=== PATIENT | female | born 1960 | race Caucasian/White ===

== ENCOUNTER 2016-08-21 09:49 | Inpatient (IN) | payer BC, OTHER ==
[~2016-08-21] VITALS: Ht 160 cm; Wt 65.3 kg
[~2016-08-21 09:49] MED LIST: CITA10TA4 PO; LISI-360 PO; XANA0.5T PO
[2016-08-29] MEDS ORDERED: LEVO.1 PO (11:28)
[2016-08-29] MEDS ORDERED: CITA10TA4 PO (11:28)
[2016-08-29] MEDS ORDERED: PRIL20CA9 PO (11:28)
[2016-08-29] MEDS ORDERED: GAS-80CH CHEW (11:28)
[2016-08-29] MEDS ORDERED: LISI-515 PO (11:28)
[2016-08-29] MEDS ORDERED: ALPR0.25 PO (11:28)
--- NOTE | 2016-08-30 07:06 | PD.HP.UP ---
H&P Update Note The Pre-Admit History and Physical Examination regarding the above named patient was reviewed (including, but not limited to, vital signs, heart, lungs, co-morbid conditions), and upon re-examination it is noted that: the patient's condition has not significantly changed since the last examination. Fernanda Padilla MD Aug 30, 2016 07:06
[2016-08-30 07:24] VITALS: BP 123/78; PULSE 101; RESP 16; TEMP 97.9; O2SAT 100
[2016-08-30] MEDS ORDERED: LACTATED RINGER'S 1000 ML INJ 1,000 ML ONE (07:32)
[2016-08-30] MEDS ORDERED: ceFAZolin 2 GM PREMIX 50 ML ONE (08:06)
[2016-08-30] MEDS ORDERED: metroNIDAZOLE 500 MG INJ 100 ML IV ONE (08:06)
[2016-08-30] MEDS ORDERED: FAMOTIDINE 20 MG/2 ML VIAL ONE (08:21)
[2016-08-30] MEDS ORDERED: ACETAMINOPHEN 1000 MG/100 ML VIAL IV ONE (08:21)
[2016-08-30] MEDS ORDERED: APREPITANT 40 MG CAP ONE (08:21)
[2016-08-30] MEDS ORDERED: HYDROmorphone HCL PF 2 MG/ML VIAL ONE (08:33)
[2016-08-30] MEDS ORDERED: MIDAZOLAM HCL 2 MG/2 ML VIAL ONE (09:04)
[2016-08-30] MEDS ORDERED: DEXAMETHASONE SOD PHOS 4 MG/ML VIAL ONE (09:04)
--- NOTE | 2016-08-30 10:09 | PD.OP ---
Operative Report Date of Surgery: Aug 30, 2016 Preoperative Diagnosis: Colonic stricture Postoperative Diagnosis: Same Procedure: Cysto with bilateral u-caths Anesthesia: DARIN Surgeon: Ryder Ritter Computer Tape Librarian(s): none Resident Surgeon: none Operation and Findings: 55-year-old female with history of colonic stricture. Patient is scheduled undergo robotic procedure by Dr. Padilla and request for made for bilateral ureteral catheter placement. The patient was brought to the operating room and identified myself as Rosa Sage. She's placed in dorsal lithotomy position, prepped and draped in usual sterile fashion, received preprocedure antibiotics, and general endotracheal tube anesthesia was administered. 22 Kazakh cystoscope was inserted into bladder. Prince cystoscopy did not show any abnormalities. The left ureteral orifice was identified and a 5 Kazakh open- ended catheter was inserted into the left ureter without difficulty. This was repeated on the right side without difficulty. A Ornelas catheter was inserted and the catheters were attached the Ornelas catheter. She tolerated the procedure well. Ryder Ritter DO Aug 30, 2016 10:09
[2016-08-30] MEDS ORDERED: PROPOFOL 200 MG/20 ML AMP IV ONE (12:22)
[2016-08-30] MEDS ORDERED: PHENYLEPH/NS 1000 MCG/10 ML SYR IV ONE (12:22)
[2016-08-30] MEDS ORDERED: ePHEDrine/NS 25 MG/5 ML SYR IV ONE (12:22)
[2016-08-30] MEDS ORDERED: KETOROLAC TROMETHAMINE 60 MG/2 ML (IM) VIAL IM ONE (12:22)
[2016-08-30] MEDS ORDERED: ONDANSETRON HCL 4 MG/2 ML VIAL IV PUSH ONE (12:22)
[2016-08-30] MEDS ORDERED: NEOSTIGMINE 3 MG/3 ML SYR IV ONE (12:22)
[2016-08-30] MEDS ORDERED: LACTATED RINGER'S 1000 ML INJ 3,000 ML IV ONE (12:22)
[2016-08-30] MEDS ORDERED: ceFAZolin INJ 1,000 MG VIAL IV ONE (14:07)
[2016-08-30] MEDS ORDERED: DO NOT ADM ANY ANTICOAGULANT DRUGS XX PRN (17:31)
[2016-08-30] MEDS ORDERED: *morphine SULFATE 8 MG/ML PERIprocedure ONLY ONE ×3 (17:32→17:50)
[2016-08-30] MEDS ORDERED: fentaNYL CITRATE 250 MCG/5 ML AMP ONE (17:32)
[2016-08-30] MEDS ORDERED: metroNIDAZOLE 500 MG INJ 100 ML IV SCH ×2 (18:00→19:00)
[2016-08-30] MEDS: D5-NS + KCL 20 MEQ INJ 1,000 ML IV SCH (18:12)
[2016-08-30] MEDS ORDERED: ACETAMINOPHEN 325 MG TAB PO PRN (18:15)
[2016-08-30] MEDS ORDERED: diphenhydrAMINE HCL 50 MG/ML VIAL IV PRN (18:15)
[2016-08-30] MEDS ORDERED: ENALAPRILAT 1.25 MG/ML VIAL IV PRN (18:15)
[2016-08-30] MEDS ORDERED: KETOROLAC TROMETHAMINE 30 MG/ML (IVP) VIAL IVP PRN (18:15)
[2016-08-30] MEDS ORDERED: POTASSIUM CHLOR 20 MEQ PREMIX 100 ML IV PRN (18:15)
[2016-08-30] MEDS ORDERED: BENZOCAINE 6 MG/MENTHOL 10 MG LOZENGE SUCK-ON PRN (18:15)
[2016-08-30] MEDS ORDERED: Post-op Orders (for Pharmacy) MISC XX ONE (18:15)
[2016-08-30] MEDS ORDERED: NALOXONE HCL 0.4 MG/ML AMP IV PRN (18:15)
[2016-08-30] MEDS ORDERED: ACETAMINOPHEN/HYDROcodone 325 MG/5 MG TAB PO PRN ×2 (18:15)
[2016-08-30] MEDS ORDERED: ENALAPRILAT 2.5 MG/2 ML VIAL IV PRN (18:15)
[2016-08-30] MEDS ORDERED: POTASSIUM CHLOR 40 MEQ PREMIX 100 ML IV PRN (18:15)
[2016-08-30] MEDS ORDERED: *HYDROmorphone PF 1 MG VIAL PERIprocedural Use ONLY ONE (18:16)
[2016-08-30 18:33] LABS: AUTOMATED NEUTROPHIL # 11.7 TH/MM3 (1.8-7.7); BASOPHIL # 0.1 TH/MM3 (0-0.2); BASOPHIL % 0.7 % (0.0-2.0); HEMATOCRIT 34.5 % (35.0-46.0); HEMO FLAGS DIFF FINAL; LYMPH % 6.1 % (9.0-44.0); LYMPHOCYTE # 0.8 TH/MM3 (1.0-4.8); MEAN CELL VOLUME 86.9 FL (80.0-100.0); MEAN CORPUSCULAR HEMOGLOBIN 28.5 PG (27.0-34.0); MEAN CORPUSCULAR HGB CONC 32.8 % (32.0-36.0); MONO % 5.1 % (0.0-8.0); NEUT % 88.1 % (16.0-70.0); PLATELET COUNT 200 TH/MM3 (150-450); RED BLOOD COUNT 3.98 MIL/MM3 (4.00-5.30); RED CELL DISTRIBUTION WIDTH 13.9 % (11.6-17.2); WHITE BLOOD COUNT 13.2 TH/MM3 (4.0-11.0)
[2016-08-30] MEDS ORDERED: HEPARIN SODIUM - SQ 10,000 UNITS/ML VIAL SQ SCH (18:45)
[2016-08-30] MEDS: MORPHINE SULFATE 30 MG/30 ML PCA IV SCH (19:02)
[2016-08-30 19:11] LABS: BICARBONATE 22.3 MEQ/L (21.0-32.0); POTASSIUM 3.2 MEQ/L (3.5-5.1)
[2016-08-30 20:00] VITALS: BP 81/53; PULSE 80; PULSE 92; RESP 14; TEMP 98.2; O2SAT 100
[2016-08-30 20:07] LABS: CALCIUM-PROTEIN CORRECTED 8.3 MG/DL (8.5-10.1)
[2016-08-30 21:00] VITALS: PULSE 76
[2016-08-30] MEDS: LISINOPRIL 10 MG TAB PO SCH (21:00)
[2016-08-30 22:00] VITALS: PULSE 82
[2016-08-30] MEDS: PCA - TOTAL MG MORPHINE DELIVERED PER SHIFT SCH (22:00)
[2016-08-30] MEDS: SODIUM CHLORIDE 0.9% FLUSH 5 ML FLUSH IVF SCH (22:46)
[2016-08-30 23:00] VITALS: PULSE 80
[2016-08-31] VITALS (25 sets, daily range): BP systolic 88–123; BP diastolic 54–82; PULSE 60–111; RESP 14–18; TEMP 98.1–99.7; O2SAT 94–100
[2016-08-31] MEDS: PCA - TOTAL MG MORPHINE DELIVERED PER SHIFT SCH ×3 (06:00→21:58)
[2016-08-31 06:40] LABS: AUTOMATED NEUTROPHIL # 7.3 TH/MM3 (1.8-7.7); BASOPHIL % 0.3 % (0.0-2.0); EOSINOPHIL % 0.1 % (0.0-4.0); HEMATOCRIT 31.4 % (35.0-46.0); HEMO FLAGS DIFF FINAL; LYMPH % 12.3 % (9.0-44.0); LYMPHOCYTE # 1.1 TH/MM3 (1.0-4.8); MEAN CELL VOLUME 86.1 FL (80.0-100.0); MEAN CORPUSCULAR HEMOGLOBIN 28.8 PG (27.0-34.0); MEAN CORPUSCULAR HGB CONC 33.4 % (32.0-36.0); MONO % 7.8 % (0.0-8.0); NEUT % 79.5 % (16.0-70.0); PLATELET COUNT 191 TH/MM3 (150-450); RED BLOOD COUNT 3.64 MIL/MM3 (4.00-5.30); RED CELL DISTRIBUTION WIDTH 13.9 % (11.6-17.2); WHITE BLOOD COUNT 9.2 TH/MM3 (4.0-11.0)
[2016-08-31 06:54] LABS: BICARBONATE 25.5 MEQ/L (21.0-32.0); POTASSIUM 3.5 MEQ/L (3.5-5.1)
[2016-08-31 07:11] LABS: CALCIUM-PROTEIN CORRECTED 8.6 MG/DL (8.5-10.1)
[2016-08-31] MEDS: D5-NS + KCL 20 MEQ INJ 1,000 ML IV SCH ×4 (07:32→20:10)
[2016-08-31] MEDS: LEVOTHYROXINE SODIUM 100 MCG TAB PO SCH (08:32)
[2016-08-31] MEDS: CITALOPRAM HYDROBROMIDE 20 MG TAB PO SCH (08:33)
[2016-08-31] MEDS: PANTOPRAZOLE SODIUM 40 MG VIAL IVP SCH (08:33)
[2016-08-31] MEDS: SODIUM CHLORIDE 0.9% FLUSH 5 ML FLUSH IVF SCH ×2 (08:33→20:06)
[2016-08-31] MEDS ORDERED: SODIUM CHLOR 0.9% 1000 ML INJ 1,000 ML IV ONE (08:45)
[2016-08-31] MEDS: HEPARIN SODIUM - SQ 10,000 UNITS/ML VIAL SQ SCH (16:00)
[2016-08-31] MEDS: ALPRAZolam 0.25 MG TAB PO PRN (20:06)
[2016-08-31] MEDS: LISINOPRIL 10 MG TAB PO SCH (20:07)
[2016-09-01] VITALS (20 sets, daily range): BP systolic 120–156; BP diastolic 71–85; PULSE 89–113; RESP 18–19; TEMP 98.8–100.2; O2SAT 92–96
[2016-09-01] MEDS: D5-NS + KCL 20 MEQ INJ 1,000 ML IV SCH ×5 (00:51→20:04)
[2016-09-01] MEDS: HEPARIN SODIUM - SQ 10,000 UNITS/ML VIAL SQ SCH ×2 (03:33→16:31)
[2016-09-01 05:26] LABS: BASOPHIL % 0.4 % (0.0-2.0); EOSINOPHIL % 0.5 % (0.0-4.0); HEMATOCRIT 29.9 % (35.0-46.0); HEMO FLAGS DIFF FINAL; LYMPH % 13.4 % (9.0-44.0); LYMPHOCYTE # 1.2 TH/MM3 (1.0-4.8); MEAN CELL VOLUME 86.5 FL (80.0-100.0); MEAN CORPUSCULAR HEMOGLOBIN 29.3 PG (27.0-34.0); MEAN CORPUSCULAR HGB CONC 33.9 % (32.0-36.0); MONO % 8.6 % (0.0-8.0); NEUT % 77.1 % (16.0-70.0); PLATELET COUNT 176 TH/MM3 (150-450); RED BLOOD COUNT 3.45 MIL/MM3 (4.00-5.30); WHITE BLOOD COUNT 9.1 TH/MM3 (4.0-11.0)
[2016-09-01] MEDS: PCA - TOTAL MG MORPHINE DELIVERED PER SHIFT SCH ×3 (06:00→20:03)
[2016-09-01 06:14] LABS: BICARBONATE 25.8 MEQ/L (21.0-32.0); POTASSIUM 3.7 MEQ/L (3.5-5.1)
[2016-09-01 06:44] LABS: CALCIUM-PROTEIN CORRECTED 8.5 MG/DL (8.5-10.1)
[2016-09-01] MEDS: LEVOTHYROXINE SODIUM 100 MCG TAB PO SCH (09:04)
[2016-09-01] MEDS: PANTOPRAZOLE SODIUM 40 MG VIAL IVP SCH (09:04)
[2016-09-01] MEDS: CITALOPRAM HYDROBROMIDE 20 MG TAB PO SCH (09:04)
[2016-09-01] MEDS: SODIUM CHLORIDE 0.9% FLUSH 5 ML FLUSH IVF SCH ×2 (09:05→20:02)
--- NOTE | 2016-09-01 10:47 | MP ---
cc: SIENNA PADILLA M.D., ANGELLA M. MD DATE OF SURGERY: 08/30/2016 PREOPERATIVE DIAGNOSIS: Splenic flexure colon stricture POSTOPERATIVE DIAGNOSIS 1. Extensive adhesions. 2. Proximal transverse colon stricture. PROCEDURE: 1. Laparascopic/robotic extensive lysis of adhesions 2. Extended left colectomy. 3. Colonoscopy SURGEON: Dr. Braulio Padilla. TECHNICAL SOLUTIONS ENGINEER: Alejandro. ANESTHESIA: General per ET tube. ESTIMATED BLOOD LOSS: 150 cc. OPERATIVE INDICATIONS The patient is a 55-year-old female with a history of possible Crohn disease and evidence of a stricture apparently at the splenic flexure which was symptomatic. OPERATIVE FINDINGS The patient had dense adhesions throughout the peritoneal cavity to the anterior abdominal wall from the small bowel and interloop adhesions between the small bowel as well. These were slowly and painstakingly dissected free and I had a lot of difficulty telling where the stricture was. Eventually we were able to clear enough of the bowel that we could see the left upper quadrant and did not see evidence of any sort of a stricture. With this I proceeded with colonoscopy which revealed the stricture. Again it was quite difficult to ascertain exactly where the stricture was due to the large amount of fat wrapping that she had throughout the colon, even the healthy colon. Eventually I was able to localize it to the proximal ascending colon. The stricture was fairly tight but there was not a lot of inflammatory changes externally on the bowel with the exception of the fat wrapping which was slightly worse in this particular area of the bowel. OPERATIVE COURSE The patient was brought to the operating room, and placed in the supine position. After induction of general anesthesia, the patient was placed in Amari stirrups and all bony prominences were carefully padded. The skin of the anterior abdominal wall, as well as the perineal area, was then prepped and draped in the usual sterile fashion. Dr. Ritter then came in and performed cystoscopy with placement of bilateral ureteral catheters, please see his operative note for details. A site was then chosen for the camera. After discussion, I elected to place that just about 2 cm to the right and just barely above the umbilicus on the right. An attempt was made to place a 10/12 trocar at this site under direct vision, but unfortunately due to the adhesions, I was not able to enter the peritoneal cavity freely. Therefore, a #5 trocar was then placed just under the right costal margin. This was placed without difficulty, and CO2 insufflation was then undertaken. A brief abdominal survey was performed and the patient was noted have massive adhesions throughout the entirety of the peritoneal cavity. At this point it was impossible to be sure where the area of the stricture was. After a lot of discussion, eventually I decided to do a double docking technique with docking over the right hip to take down the massive amounts of adhesions and then redocking over the left shoulder to take down the part of the colon that was of concern. The adhesions to the anterior abdominal wall were dissected free using the laparascope to the point where we could place the following trocars. A 10/12 trocar was placed in the suprapubic area for the #1 port. An 8 Davinci trocar was placed just to the left of the midline under the costal margin, and the previously placed #5 port was traded out for a #8 Da Jaleel port. The adhesions had been cleared around the site of the suprapubic trocar, and the robot was docked over the left hip. The adhesions were slowly and tediously dissected free from multiple areas of omentum and bowel to the anterior abdominal wal,l as well as the interloop adhesions. Eventually we were able to clear enough of the right lower quadrant/right side of the abdomen that I felt appropriate to proceed with the upper left abdominal area. The robot was undocked. The laparoscope was placed again into the peritoneal cavity and the omentum was brought up and over the transverse colon and the robot was redocked over the left shoulder. The adhesions to the left side of the abdomen were then slowly and painstakingly dissected free. The splenic flexure was noted to be extremely tightly adherent to the edge of the spleen. The lateral peritoneal attachments of the descending colon were dissected free and dissection was continued slowly and carefully up and around the splenic flexure, eventually freeing the splenic flexure. The omentum was then pulled away from the transverse colon and eventually we were able to dissect into the lesser sac, although this was difficult due to the fat wrapping that the patient had. Eventually we had mobilized the colon from the proximal transverse all the way down to the distal sigmoid colon. At this point the bowel was reevaluated and it was still not clear where the area of the stricture was. The lateral peritoneal fascia was dissected free to the point where I felt that we could then make a small incision at the periumbilical area and see if I could palpate where the fistula was. The robot was undocked and a 10 to 12 cm vertical midline incision was made, beginning just above the umbilicus and proceeding to midway between the umbilicus and the symphysis pubis. Using electrocautery, dissection was carried down to the fascia of the anterior abdominal wall which was split the length of the skin incision. A wound protector was then placed. The bowel was then gently prolapsed up and out of the incision and even with palpation I was not able to definitely ascertain where the area of stricture was. The colonoscope was then called for and, after a fairly significant wait, eventually was found and brought into the room. This was advanced through the anus and advanced to the area of the stricture, which was marked to be about the mid transverse colon. Again even with the colonoscope in place, it was difficult to transilluminate the bowel because of the fat wrapping. The colonoscope was then withdrawn, desufflating the colon to the extent possible. A site was then chosen for distal division of the bowel, on the descending colon just past the area of the splenic flexure where it had been so adherent to the spleen. A window was made in the mesentery at this level and the AYIDN stapler 55 blue load was placed across the bowel at this level. A site was then chosen for proximal division, on the bowel along the mid transverse colon. The mesentery was again opened and a reload of the AYDIN stapler was placed across the bowel at this level. The intervening mesentery was divided and ligated using 0 Vicryl ties. The bowel was taken to a back table where it was opened and the stricture was not identified. With this I felt almost certainly that it was a little further along the transverse colon, within that same area of fat wrapping. Dissection continued an additional 4 to 5 cm proximal on the bowel, and a window was made in the mesentery. A reload of the AYDIN stapler was placed across the bowel at this level, and the bowel was then amputated. The mesentery was divided and ligated using 0 Vicryl ties. The specimen was taken to a back table and the stricture was clearly identified within the specimen lumen. A little bit of additional dissection was needed down in the left lower quadrant to free the bowel up enough to lay nicely without tension against the proximal transverse colon. The antimesenteric corners of the staple line were then removed. One limb of gastrointestinal stapler was placed down each limb of the bowel. This was closed along the antimesenteric border, fired, and removed, thus creating and enteroenterotomy. The resulting enterotomy was closed transversely using the TX 60 stapling device. A simple stay suture was placed at the distal anastomosis using 3-0 Vicryl, and the omentum was brought over across the anastomosis and sutured across to decrease any possible tension on the anastomosis. The bowel was examined. There were two small areas of serosal injury that needed to be repaired in a [id number] fashion, using 3-0 Vicryl. The peritoneal cavity was then copiously irrigated with warm normal saline and visually checked with no sign of significant bleeding. The 10/12 trocar sites were then closed in interrupted fashion using #1 PDS and the vertical incision was then closed in a running fashion using looped #1 PDS. The wounds were copiously irrigated with warm normal saline and the midline incision was closed in a running subcuticular fashion using 3-0 Vicryl. The trocar sites were closed in an interrupted subcuticular fashion. The others were closed in an interrupted subcuticular fashion using 3-0 Vicryl. Steri-Strips and sterile dressings were then applied. All sponge, needle and sponge counts were correct. The right ureteral stent was removed and the patient was returned to the post anesthesia care unit in a stable condition. MD BECCA Dan/JESSICA /5:20 PM /9:51 AM FREDERIC
[2016-09-01] MEDS: MORPHINE SULFATE 30 MG/30 ML PCA IV SCH (13:05)
[2016-09-01] MEDS: LISINOPRIL 10 MG TAB PO SCH (20:03)
[2016-09-02] VITALS (7 sets, daily range): BP systolic 135–155; BP diastolic 77–91; PULSE 83–100; RESP 18–20; TEMP 97.6–99.5; O2SAT 94–98
[2016-09-02] MEDS: HEPARIN SODIUM - SQ 10,000 UNITS/ML VIAL SQ SCH ×2 (05:23→15:54)
[2016-09-02] MEDS: PCA - TOTAL MG MORPHINE DELIVERED PER SHIFT SCH ×3 (05:23→20:53)
[2016-09-02 06:22] LABS: AUTOMATED NEUTROPHIL # 7.8 TH/MM3 (1.8-7.7); BASOPHIL % 0.4 % (0.0-2.0); EOSINOPHIL # 0.2 TH/MM3 (0-0.4); EOSINOPHIL % 1.6 % (0.0-4.0); HEMO FLAGS DIFF FINAL; LYMPH % 12.4 % (9.0-44.0); LYMPHOCYTE # 1.2 TH/MM3 (1.0-4.8); MEAN CELL VOLUME 85.9 FL (80.0-100.0); MEAN CORPUSCULAR HEMOGLOBIN 29.9 PG (27.0-34.0); MEAN CORPUSCULAR HGB CONC 34.8 % (32.0-36.0); MONO % 6.8 % (0.0-8.0); NEUT % 78.8 % (16.0-70.0); PLATELET COUNT 192 TH/MM3 (150-450); RED BLOOD COUNT 3.49 MIL/MM3 (4.00-5.30); RED CELL DISTRIBUTION WIDTH 13.7 % (11.6-17.2); WHITE BLOOD COUNT 9.9 TH/MM3 (4.0-11.0)
[2016-09-02 06:47] LABS: BICARBONATE 25.5 MEQ/L (21.0-32.0); POTASSIUM 3.7 MEQ/L (3.5-5.1)
[2016-09-02] MEDS: CITALOPRAM HYDROBROMIDE 20 MG TAB PO SCH (07:57)
[2016-09-02] MEDS: SODIUM CHLORIDE 0.9% FLUSH 5 ML FLUSH IVF SCH ×2 (07:57→20:53)
[2016-09-02] MEDS: LEVOTHYROXINE SODIUM 100 MCG TAB PO SCH (07:57)
[2016-09-02] MEDS: PANTOPRAZOLE SODIUM 40 MG VIAL IVP SCH (07:57)
[2016-09-02] MEDS: D5-NS + KCL 20 MEQ INJ 1,000 ML IV SCH ×2 (12:07→20:53)
[2016-09-02] MEDS: ONDANSETRON HCL 4 MG/2 ML VIAL IV PRN ×2 (14:07→20:53)
[2016-09-02] MEDS: SODIUM CHLORIDE 0.9% FLUSH 5 ML FLUSH IVF PRN (14:07)
--- NOTE | 2016-09-02 15:10 | HHI.PR ---
Subjective Remarks POD#3 s/p robotic/open CHARITY, segmental colectomy Reports pain, burping, heartburn Objective Vital Signs Date Time Temp Pulse Resp B/P Pulse Ox O2 Delivery O2 Flow Rate FiO2 09/02/16 14:00 18 09/02/16 12:05 94 09/02/16 12:03 98.8 83 20 155/91 98 09/02/16 08:21 98.6 95 20 155/80 95 09/02/16 08:00 Nasal Cannula 1.00 21 09/02/16 05:23 18 09/02/16 04:09 Nasal Cannula 1.00 09/02/16 04:00 99.5 98 20 153/78 96 09/02/16 00:00 97.6 100 18 136/79 94 09/01/16 21:44 Simple Mask 2.00 09/01/16 20:03 18 09/01/16 20:00 99.8 108 18 143/85 95 I/O 09/01/16 09/01/16 09/01/16 09/02/16 09/02/16 09/02/16 07:00 15:00 23:00 07:00 15:00 23:00 Intake Total 1990 ml 828 ml 1111 ml 1096 ml Output Total 700 ml 200 ml Balance 1290 ml 628 ml 1111 ml 1096 ml Intake Oral 240 ml 240 ml IV Total 1750 ml 588 ml 1111 ml 1096 ml Output Urine Total 700 ml 200 ml # Bowel Movements 0 0 Result Diagram: 09/02/16 0559 09/02/16 0559 Objective Remarks Abdomen soft, mod distension, tender Wounds clean Assessment and Plan Assessment and Plan Hold on PO until ileus resolves Mobilize Fernanda Padilla MD Sep 02, 2016 15:09
[2016-09-02] MEDS: MORPHINE SULFATE 30 MG/30 ML PCA IV SCH (18:14)
[2016-09-02] MEDS: LISINOPRIL 10 MG TAB PO SCH (20:53)
[2016-09-03] VITALS (9 sets, daily range): BP systolic 134–157; BP diastolic 65–91; PULSE 77–108; RESP 16–20; TEMP 96.5–99.7; O2SAT 93–97
[2016-09-03] MEDS: ONDANSETRON HCL 4 MG/2 ML VIAL IV PRN ×3 (03:47→20:38)
[2016-09-03] MEDS: HEPARIN SODIUM - SQ 10,000 UNITS/ML VIAL SQ SCH ×2 (03:47→16:20)
[2016-09-03] MEDS: PCA - TOTAL MG MORPHINE DELIVERED PER SHIFT SCH ×3 (05:22→22:00)
[2016-09-03] MEDS: PANTOPRAZOLE SODIUM 40 MG VIAL IVP SCH (07:26)
[2016-09-03] MEDS: LEVOTHYROXINE SODIUM 100 MCG TAB PO SCH (07:27)
[2016-09-03] MEDS: CITALOPRAM HYDROBROMIDE 20 MG TAB PO SCH (07:27)
[2016-09-03] MEDS: SODIUM CHLORIDE 0.9% FLUSH 5 ML FLUSH IVF SCH ×2 (07:28→21:00)
--- NOTE | 2016-09-03 09:53 | RADRPT ---
EXAM DATE/TIME: 09/03/2016 09:27 [facility] COMPARISON: No previous studies available for comparison. INDICATIONS : Evaluate for ileus. MEDICAL HISTORY : Hyperthyroidism. Gastroesophageal reflux disease. Crohn's disease. Arthritis. Splenic flexure str icture. SURGICAL HISTORY : 2 bowel resections. ENCOUNTER: Subsequent ACUITY: initial PAIN SCORE: 5/10 LOCATION: Abdomen, all quadrants. FINDINGS: Supine view of the abdomen was performed. Gaseous distention of multiple bowel loops. Cholecystectomy clips. No mass seen. The osseous structures are unremarkable. CONCLUSION: Gaseous distention of multiple bowel loops which can be seen with ileus. Storm Lo MD on September 03, 2016 at 9:50 Board Certified Radiologist. This report was verified electronically.
[2016-09-03 10:57] LABS: HEMATOCRIT 30.7 % (35.0-46.0); MEAN CORPUSCULAR HEMOGLOBIN 28.4 PG (27.0-34.0); PLATELET COUNT 228 TH/MM3 (150-450); RED BLOOD COUNT 3.57 MIL/MM3 (4.00-5.30); RED CELL DISTRIBUTION WIDTH 13.4 % (11.6-17.2); REVIEW FLAG FINAL; WHITE BLOOD COUNT 9.4 TH/MM3 (4.0-11.0)
[2016-09-03 11:22] LABS: BICARBONATE 26.2 MEQ/L (21.0-32.0); MAGNESIUM 1.6 MG/DL (1.5-2.5); POTASSIUM 4.1 MEQ/L (3.5-5.1)
[2016-09-03] MEDS: D5-NS + KCL 20 MEQ INJ 1,000 ML IV SCH (13:10)
[2016-09-03] MEDS: SODIUM CHLORIDE 0.9% FLUSH 5 ML FLUSH IVF PRN (14:27)
--- NOTE | 2016-09-03 18:34 | HHI.PR ---
Subjective Remarks POD#4 s/p robotic/open CHARITY, segmental colectomy emesis last pm Gas and stool this am, feels better Objective Vital Signs Date Time Temp Pulse Resp B/P Pulse Ox O2 Delivery O2 Flow Rate FiO2 09/03/16 18:08 93 21 09/03/16 17:00 96.5 82 17 144/65 93 09/03/16 16:00 99.7 98 16 142/85 95 09/03/16 14:00 18 09/03/16 12:00 98.4 97 16 156/91 94 09/03/16 09:14 93 Nasal Cannula 21 09/03/16 08:00 Room Air 09/03/16 08:00 98.0 108 18 147/85 93 09/03/16 05:22 16 09/03/16 04:28 97.9 82 16 142/80 97 09/03/16 00:27 99.0 89 18 134/78 97 09/02/16 23:06 Nasal Cannula 1.00 09/02/16 20:53 14 09/02/16 20:00 99.1 93 20 146/85 96 I/O 09/02/16 09/02/16 09/02/16 09/03/16 09/03/16 09/03/16 07:00 15:00 23:00 07:00 15:00 23:00 Intake Total 1111 ml 1456 ml 240 ml 280 ml 1781 ml Output Total 300 ml 590 ml 200 ml Balance 1111 ml 1456 ml -60 ml -310 ml 1581 ml Intake Oral 360 ml 240 ml 280 ml 0 ml IV Total 1111 ml 1096 ml 1781 ml Output Urine Total 300 ml 500 ml Emesis 90 ml 200 ml # Voids 3 3 # Bowel Movements 0 0 1 Result Diagram: 09/03/16 1024 09/03/16 1024 Objective Remarks Abdomen soft, tender slightly less distended Wounds clean Assessment and Plan Assessment and Plan Hold on PO until ileus resolves If further emesis, NGT Mobilize Fernanda Padilla MD Sep 03, 2016 18:34
[2016-09-03] MEDS: LISINOPRIL 10 MG TAB PO SCH (22:25)
[2016-09-04] VITALS (8 sets, daily range): BP systolic 139–159; BP diastolic 74–87; PULSE 80–88; RESP 14–20; TEMP 96.8–99.8; O2SAT 90–96
[2016-09-04] MEDS: HEPARIN SODIUM - SQ 10,000 UNITS/ML VIAL SQ SCH ×2 (05:20→16:00)
[2016-09-04] MEDS: PCA - TOTAL MG MORPHINE DELIVERED PER SHIFT SCH ×3 (05:20→21:39)
[2016-09-04] MEDS: D5-NS + KCL 20 MEQ INJ 1,000 ML IV SCH ×2 (06:02→20:20)
[2016-09-04] MEDS: PANTOPRAZOLE SODIUM 40 MG VIAL IVP SCH ×2 (09:00→14:39)
[2016-09-04] MEDS: SODIUM CHLORIDE 0.9% FLUSH 5 ML FLUSH IVF SCH ×2 (09:00→21:33)
[2016-09-04] MEDS: LEVOTHYROXINE SODIUM 100 MCG TAB PO SCH (09:02)
[2016-09-04] MEDS: CITALOPRAM HYDROBROMIDE 20 MG TAB PO SCH (09:02)
[2016-09-04] MEDS: SODIUM CHLORIDE 0.9% FLUSH 5 ML FLUSH IVF PRN ×2 (10:04→14:39)
[2016-09-04] MEDS: LISINOPRIL 10 MG TAB PO SCH (21:33)
[2016-09-04] MEDS: ALPRAZolam 0.25 MG TAB PO PRN (21:37)
--- NOTE | 2016-09-04 22:14 | HHI.PR ---
Subjective Remarks C/R Surg POD # 5 afebrile, VSS UO adeq katerina PO Objective - Vital Signs Date Time Temp Pulse Resp B/P Pulse Ox O2 Delivery O2 Flow Rate FiO2 09/04/16 21:39 18 09/04/16 20:00 98.7 83 154/74 96 09/04/16 18:22 21 09/03/16 21:00 Room Air 09/02/16 23:06 1.00 Result Diagram: 09/03/16 1024 09/03/16 1024 Other Results PE alert Abd - soft, min tympany, wound dry A/P Assessment and Plan Imp: less distention incr PO decr IVF Moise Otero MD Sep 04, 2016 22:14
[2016-09-05] VITALS: BP 129/71; PULSE 77; RESP 17; TEMP 98; O2SAT 97
[2016-09-05 04:00] VITALS: BP 134/65; PULSE 76; RESP 17; TEMP 98.5; O2SAT 95
[2016-09-05] MEDS: HEPARIN SODIUM - SQ 10,000 UNITS/ML VIAL SQ SCH (04:53)
[2016-09-05] MEDS: PCA - TOTAL MG MORPHINE DELIVERED PER SHIFT SCH (06:00)
[2016-09-05 08:00] VITALS: BP 133/66; PULSE 86; RESP 18; TEMP 98.5; O2SAT 95
[2016-09-05] MEDS: LEVOTHYROXINE SODIUM 100 MCG TAB PO SCH (09:33)
[2016-09-05] MEDS: CITALOPRAM HYDROBROMIDE 20 MG TAB PO SCH (09:33)
[2016-09-05] MEDS: SODIUM CHLORIDE 0.9% FLUSH 5 ML FLUSH IVF SCH (09:34)
[2016-09-05] MEDS: PANTOPRAZOLE SODIUM 40 MG VIAL IVP SCH (09:34)
[2016-09-05 12:00] VITALS: BP 144/84; PULSE 85; RESP 18; TEMP 97.7; O2SAT 96
--- NOTE | 2016-09-05 13:14 | HHI.PR ---
Subjective Remarks C/R Surg POD # 6 afebrile, VSS UO adeq katerina PO +BM Objective - Vital Signs Date Time Temp Pulse Resp B/P Pulse Ox O2 Delivery O2 Flow Rate FiO2 09/05/16 12:00 97.7 85 18 144/84 96 09/04/16 18:22 21 09/03/16 21:00 Room Air 09/02/16 23:06 1.00 Result Diagram: 09/03/16 1024 09/03/16 1024 Objective Remarks PE alert Abd -soft, wounds clean A/P Assessment and Plan Imp: less distention incr PO decr IVF dc plans Moise Otero MD Sep 05, 2016 13:14
--- NOTE | 2016-12-01 21:47 | MD ---
cc: SIENNA MARTINEZ M.D. ADMISSION DATE: 08/30/2016 DISCHARGE DATE: 09/05/2016 ADMISSION DIAGNOSES 1. Colon stricture. 2. Crohn disease. 3. Fistula in ano. DISCHARGE DIAGNOSES 1. Colon stricture. 2. Crohn disease. 3. Fistula in ano. PROCEDURES 1. Cystoscopy with placement of bilateral ureteral catheters. 2. Laparoscopic / robotic extensive lysis of adhesions. 3. Extended left colectomy. 4. Colonoscopy. HOSPITAL COURSE The patient is 55-year-old female with a history of probable Crohn disease and evidence of a stricture on the left side. Intraoperative findings included dense adhesions throughout the peritoneal cavity to the anterior abdominal wall from the small bowel as well as intraloop adhesions. Stricture of the transverse colon. HOSPITAL COURSE The patient is a 55-year-old female history with likely Crohn disease and evidence of the stricture initially believed to be the splenic flexure but it ultimately ended up being at the proximal transverse colon. HOSPITAL COURSE The patient was admitted on August 30, 2016 after an outpatient bowel prep where she underwent the above named procedures. Intraoperative findings included dense adhesions throughout the peritoneal cavity and a stricture which ultimately ended up being in the mid to proximal transverse colon which necessitated a small laparotomy incision. Postoperatively the patient did fairly well. She did have a small amount of ileus which gradually resolved and her bowel and bladder function ultimately resumed and she discharged to home with instructions follow-up with myself in the office. Final pathology revealed an area of chronic inflammatory changes with narrowing but no definitive evidence of active Crohn disease. MD BECCA Dan/DEANNA /1:30 PM /9:29 PM FREDERIC
== END 2016-09-05 15:14 | disposition home or self-care (01) | DRG 331 ==
LOC: HSDI 08-30 06:42 → HCIS 08-30 19:01 → N07B 09-01 15:06
PROVIDERS: ADMIT Colon & Rectal Surgery; ATTEND Colon & Rectal Surgery
PROC: 0T9B70Z Drainage of Bladder with Drainage Device, Via Natural or Artificial Opening (ICD-10-PCS; 2016-08-30)
PROC: 0DJD8ZZ Inspection of Lower Intestinal Tract, Via Natural or Artificial Opening Endoscopic (ICD-10-PCS; 2016-08-30)
PROC: 8E0W4CZ Robotic Assisted Procedure of Trunk Region, Percutaneous Endoscopic Approach (ICD-10-PCS; 2016-08-30)
PROC: 0T788DZ Dilation of Bilateral Ureters with Intraluminal Device, Via Natural or Artificial Opening Endoscopic (ICD-10-PCS; 2016-08-30)
PROC: 0DBL0ZZ Excision of Transverse Colon, Open Approach (ICD-10-PCS; principal; 2016-08-30 09:07)
PROC: 0DNE4ZZ Release Large Intestine, Percutaneous Endoscopic Approach (ICD-10-PCS; 2016-08-30 09:07)
PROC: 0DN84ZZ Release Small Intestine, Percutaneous Endoscopic Approach (ICD-10-PCS; 2016-08-30 09:07)
DX: K56.69 Other intestinal obstruction (principal); K66.0 Peritoneal adhesions (postprocedural) (postinfection)
CPT/HCPCS: 74000; 76937; 80048; 83735; 84155; 85025; 85027; 86850; 86900; 86901; 88307; 94150; C9113; J0131; J0690; J1100; J1170; J1644; J1885; J2250; J2270; J2370; J2405; J2710; J3010; J3480; J7030; J7120; J8501